=== PATIENT | male | born 1995 | race Caucasian/White ===

== ENCOUNTER → 2019-05-04 | Outpatient (REF) | payer OTHER | LOC: M WUC 13:00 | PROVIDERS: ATTEND Physician Assistant | DX: J02.9 Acute pharyngitis, unspecified (principal) ==

== ENCOUNTER → 2024-05-21 | Outpatient (REF) | payer BC | LOC: M SMT 17:49 | PROVIDERS: ATTEND Urology | DX: Z30.2 Encounter for sterilization (principal) ==